=== PATIENT | female | born 1980 | race Caucasian/White ===

== ENCOUNTER 2020-11-01 21:28 | Emergency (ER) | payer SELFPAY ==
[~2020-11-01] VITALS: Ht 154.9 cm; Wt 68.1 kg
[2020-11-01 21:32] VITALS: BP 134/85
== END 2020-11-01 23:06 | disposition home or self-care (01) ==
LOC: ER 21:30
DX: Z02.89 Encounter for other administrative examinations (principal); I10 Essential (primary) hypertension; R94.31 Abnormal electrocardiogram [ECG] [EKG]; K21.9 Gastro-esophageal reflux disease without esophagitis
CPT/HCPCS: 93005; 99283